=== PATIENT | female | born 1940 | race Caucasian/White ===

== ENCOUNTER 2021-10-04 22:38 | Emergency (ER) | payer MEDICARE, OTHER | END 2021-10-05 02:03 | disposition home or self-care (01) | LOC: JP.ED 22:38 | DX: S80.12XA Contusion of left lower leg, initial encounter (principal); E78.00 Pure hypercholesterolemia, unspecified; I10 Essential (primary) hypertension; Z88.8 Allergy status to other drugs, medicaments and biological substances; Z88.6 Allergy status to analgesic agent; Z79.899 Other long term (current) drug therapy; Z90.710 Acquired absence of both cervix and uterus; W01.0XXA Fall on same level from slipping, tripping and stumbling without subsequent striking against object, initial encounter | CPT/HCPCS: 36415; 85379; 93971-LT; 99284 ==